=== PATIENT | female | born 1940 ===

== ENCOUNTER 2018-09-12 10:26 | Outpatient (CLI) | payer OTHER | END 2018-09-12 21:11 | disposition home or self-care (01) | LOC: SONOGRAMA 10:26 → EDBD 10:26 → SONOGRAMA 21:11 → MAMO-SONO 09-14 10:15 | DX: D72.818 Other decreased white blood cell count (principal); C50.212 Malignant neoplasm of upper-inner quadrant of left female breast; E03.8 Other specified hypothyroidism; I10 Essential (primary) hypertension; E78.2 Mixed hyperlipidemia; E04.8 Other specified nontoxic goiter ==

== ENCOUNTER → 2018-09-12 | Outpatient (CLI) | payer OTHER | END | disposition home or self-care (01) | LOC: LAB 09:43 → EDBD 09:43 → LAB 10:08 | DX: D72.818 Other decreased white blood cell count (principal); C50.212 Malignant neoplasm of upper-inner quadrant of left female breast; E03.8 Other specified hypothyroidism; I10 Essential (primary) hypertension; E78.2 Mixed hyperlipidemia; D50.8 Other iron deficiency anemias; D51.1 Vitamin B12 deficiency anemia due to selective vitamin B12 malabsorption with proteinuria; D51.0 Vitamin B12 deficiency anemia due to intrinsic factor deficiency; E06.3 Autoimmune thyroiditis; R97.0 Elevated carcinoembryonic antigen [CEA]; R97.8 Other abnormal tumor markers; Z85.3 Personal history of malignant neoplasm of breast ==

== ENCOUNTER 2018-11-24 07:44 | Outpatient (CLI) | payer OTHER | END 2018-11-24 15:00 | disposition home or self-care (01) | LOC: LAB 07:44 | DX: E03.8 Other specified hypothyroidism (principal); C50.212 Malignant neoplasm of upper-inner quadrant of left female breast; D72.818 Other decreased white blood cell count; I10 Essential (primary) hypertension; E78.2 Mixed hyperlipidemia; D50.8 Other iron deficiency anemias; D51.8 Other vitamin B12 deficiency anemias; D47.2 Monoclonal gammopathy ==

== ENCOUNTER 2018-11-24 08:43 | Outpatient (CLI) | payer OTHER | END 2018-11-24 08:45 | disposition home or self-care (01) | LOC: SONOGRAMA 08:43 | DX: E03.8 Other specified hypothyroidism (principal) ==